=== PATIENT | female | born 1985 | race African-American/Black ===

== ENCOUNTER 2016-10-20 09:10 | Inpatient (IN) | payer OTHER ==
[~2016-10-20] VITALS: Ht 154.9 cm; Wt 72.6 kg
[~2016-10-20 09:10] MED LIST: ALBUTEROL SULF8.5 GM INH; AZITHROMYCIN250 MG ORAL; BENADRYL50 MG ORAL; CIPROFLOXACIN500 M2 ORAL; COLACE100 MG ORAL; HYDROCORTISONE28 G5 TP; LEVAQUIN500 MG ORAL; MAGNESIUM CITR296 M1 PO; MEDROL DOSEPAK4 MG ORAL; METRONIDAZOLE500 MG ORAL; NORCO 5-325 TA1 EACH ORAL; PREDNISONE20 MG ORAL; UNOBMED
[2016-10-20] MEDS ORDERED: NKM (09:29)
[2016-10-20] MEDS ORDERED: HYDROmorphone 1 MG, DiphenhydrAMINE 25 MG in NS 55 ML IV ONE (09:30)
[2016-10-20] MEDS ORDERED: Solu-MEDROL 125mg Inj IVP ONE (09:30)
--- NOTE | 2016-10-20 09:31 | Emergency Room Report ---
History of Present Illness General Chief Complaint: Chest Pain Source: Patient Present Illness HPI Patient presents with complaints of general weakness Left upper chest pain Patient reports that she has Crohn's and she has had increased diarrhea Increased bleeding as well Pain in the upper chest as 12/09 denies any pleurisy with this Patient also reports vomiting Patient reports that she's been off medications for the past one year Initially reports that her insurance was not active later she reports that she has been going through a lot and did not have the chance to see a physician She reports fever yesterday Denies any headache or visual changes Allergies: Coded Allergies: HEPARIN (Verified Allergy, Mild, RASH, 09/01/13) Patient History Past Medical History: see triage record Pertinent Family History: none Last Menstrual Period: september 28, 2016 Now: No Reviewed Nursing Documentation: PMH: Agreed, PSxH: Agreed Nursing Documentation-PMH Past Medical History: No History, Except For Hx Cardiac Problems: No - LUPUS, CHRONS, RA Hx Diabetes: Yes Review of Systems All Other Systems: negative except mentioned in HPI Physical Exam Vital Signs Date Time Temp Pulse Resp B/P Pulse Ox O2 Delivery O2 Flow Rate FiO2 10/20/16 09:16 98.2 96 21 119/67 100 Room Air Sp02 EP Interpretation: reviewed, normal General Appearance: no apparent distress - However appears weak Head: normocephalic, atraumatic Eyes: bilateral eye EOMI, bilateral eye PERRL ENT: hearing grossly normal, TMs + canals normal, uvula midline, dry mucus membranes Neck: full range of motion, supple, no meningismus, no bony tend Respiratory: lungs clear, normal breath sounds, no rhonchi, no respiratory distress, no retraction, no accessory muscle use Cardiovascular #1: normal peripheral pulses, regular rate, rhythm, no edema, no gallop, no JVD, no murmur Gastrointestinal: no mass, no organomegaly, non-distended, no guarding, no hernia, no pulsatile mass, no rebound, tenderness - Patient is tender diffusely however soft abdomen mild hyperactive bowel sounds, , Genitourinary: no CVA tenderness Musculoskeletal: normal inspection Neurologic: oriented x3, responsive, 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 tested, motor strength/ tone normal, sensory intact Psychiatric: mood/affect normal Skin: normal color, no rash, warm/dry, palpation normal Lymphatic: normal inspection, no adenopathy Medical Decision Making Diagnostic Impression: Primary Impression: ACS (acute coronary syndrome) Additional Impression: Crohn disease ER Course Patient is a fairly complex patient with multiple differential to consideration including but not limited to cardiac cardiopulmonary and vascular emergencies Patient's blood work at this time and so far appropriate patient does have multiple risk factors Given the history exam and presentation Patient will be admitted for further inpatient care Labs Test 10/20/16 09:35 10/20/16 09:45 10/20/16 10:10 10/20/16 15:45 Urine Color Pale yellow Urine Appearance Clear Urine pH 7 (4.5-8.0) Urine Specific [place] 1.010 (1.005-1.035) Urine Protein Negative (NEGATIVE) Urine Glucose (UA) Negative (NEGATIVE) Urine Ketones Negative (NEGATIVE) Urine Occult Blood Negative (NEGATIVE) Urine Nitrite Negative (NEGATIVE) Urine Bilirubin Negative (NEGATIVE) Urine Urobilinogen Normal MG/DL (0.0-1.0) Urine Leukocyte Esterase Negative (NEGATIVE) Urine HCG, Qualitative Negative Urine Opiates Screen Negative (NEGATIVE) Urine Barbiturates Screen Negative (NEGATIVE) Phencyclidine (PCP) Screen Negative (NEGATIVE) Urine Amphetamines Screen Positive (NEGATIVE) Urine Benzodiazepines Screen Negative (NEGATIVE) Urine Cocaine Screen Negative (NEGATIVE) Urine Marijuana (THC) Screen Negative (NEGATIVE) Sodium Level 136 mEQ/L (135-145) Potassium Level 4.0 mEQ/L (3.4-4.9) Chloride Level 96 mEQ/L (98-107) Carbon Dioxide Level 26 mEQ/L (20-30) Anion Gap 14 (5-15) Blood Urea Nitrogen 7 mg/dL (7-23) Creatinine 0.7 mg/dL (0.5-0.9) Estimat Glomerular Filtration Rate > 60 mL/min (>60) Glucose Level 109 mg/dL (74-106) Calcium Level 9.5 mg/dL (8.6-10.2) Total Bilirubin 0.5 mg/dL (0.0-1.2) Aspartate Amino Transf (AST/SGOT) 17 U/L (5-40) Alanine Aminotransferase (ALT/SGPT) 10 U/L (3-33) Alkaline Phosphatase 75 U/L (35-104) Total Creatine Kinase 52 U/L (26-140) Creatine Kinase MB < 1.5 ng/mL (< 3.8) Creatine Kinase MB Relative Index Troponin I < 0.30 ng/mL (<=0.30) < 0.30 ng/mL (<=0.30) Pro-B-Type Natriuretic Peptide 17 pg/mL (0-125) Total Protein 7.5 g/dL (6.6-8.7) Albumin 4.5 g/dL (3.5-5.2) Globulin 3.0 g/dL Albumin/Globulin Ratio 1.5 (1.0-2.7) Lipase 18 U/L (< 60) White Blood Count 11.1 K/UL (4.8-10.8) Red Blood Count 5.01 M/UL (4.20-5.40) Hemoglobin 14.8 G/DL (12.0-16.0) Hematocrit 45.8 % (37.0-47.0) Mean Corpuscular Volume 91 FL (80-99) Mean Corpuscular Hemoglobin 29.6 PG (27.0-31.0) Mean Corpuscular Hemoglobin Concent 32.4 G/DL (32.0-36.0) Red Cell Distribution Width 13.8 % (11.6-14.8) Platelet Count 293 K/UL (150-450) Mean Platelet Volume 8.2 FL (6.5-10.1) Neutrophils (%) (Auto) 79.5 % (45.0-75.0) Lymphocytes (%) (Auto) 14.2 % (20.0-45.0) Monocytes (%) (Auto) 4.6 % (1.0-10.0) Eosinophils (%) (Auto) 1.0 % (0.0-3.0) Basophils (%) (Auto) 0.7 % (0.0-2.0) Prothrombin Time 10.1 SEC (9.30-11.50) Prothromb Time International Ratio 1.0 (0.9-1.1) Activated Partial Thromboplast Time 26 SEC (23-33) EKG Diagnostic Results Rate: normal Rhythm: NSR ST Segments: other - Nonspecific ST and T-wave changes Rhythm Strip Diag. Results EP Interpretation: yes Rate: 77 Rhythm: NSR, no PVC's, no ectopy Chest X-Ray Diagnostic Results EP Interpretation: Yes Findings: no consolidation, no effusion, no pneumothorax Number of Views: 1 Last Vital Signs Date Time Temp Pulse Resp B/P Pulse Ox O2 Delivery O2 Flow Rate FiO2 10/20/16 09:23 92 18 Room Air 10/20/16 09:16 98.2 119/67 100 Status: improved Disposition: ADMITTED INPATIENT Condition: Serious JESICA GUTIÉRREZ D.O. Oct 20, 2016 09:31
[2016-10-20] MEDS ORDERED: DiphenhydrAMINE 50mg/ml Inj ONE (09:54)
[2016-10-20] MEDS ORDERED: HYDROmorphone 1mg/ml Carpuject ONE (09:54)
[2016-10-20] MEDS ORDERED: NS 55 ML IV ONE (09:55)
[2016-10-20 10:00] LABS: APPEARANCE,URINE CLEAR; KETONES,URINE NEGATIVE (NEGATIVE); LEUKOCYTE ESTERASE ,URINE NEGATIVE (NEGATIVE); NITRITE,URINE NEGATIVE (NEGATIVE); PH,URINE 7 (4.5-8.0); PROTEIN,URINE NEGATIVE (NEGATIVE); UROBILINOGEN,URINE NORMAL MG/DL (0.0-1.0)
[2016-10-20 10:41] LABS: TROPONIN I < 0.30 ng/mL (<=0.30)
[2016-10-20 10:46] LABS: BASOPHILS % (AUTO) 0.7 % (0.0-2.0); LYMPHOCYTES % (AUTO) 14.2 % (20.0-45.0); MEAN CORPUSCULAR HEMOGLOBIN 29.6 PG (27.0-31.0); MEAN CORPUSCULAR HGB CONC 32.4 G/DL (32.0-36.0); MEAN CORPUSCULAR VOLUME 91 FL (80-99); MEAN PLATELET VOLUME 8.2 FL (6.5-10.1); MONOCYTES % (AUTO) 4.6 % (1.0-10.0); NEUTROPHILS % (AUTO) 79.5 % (45.0-75.0); PLATELET COUNT 293 K/UL (150-450); RED BLOOD COUNT 5.01 M/UL (4.20-5.40); RED CELL DISTRIBUTION WIDTH 13.8 % (11.6-14.8); WHITE BLOOD COUNT 11.1 K/UL (4.8-10.8)
[2016-10-20 10:48] VITALS: BP 111/75
[2016-10-20 10:53] LABS: PROTHROMBIN TIME 10.1 SEC (9.30-11.50)
[2016-10-20 10:58] LABS: ALANINE AMINOTRANSFERASE 10 U/L (3-33); ALBUMIN/GLOBULIN RATIO 1.5 (1.0-2.7); ANION GAP 14 (5-15); ASPARTATE AMINO TRANSFERASE 17 U/L (5-40); CALCIUM 9.5 mg/dL (8.6-10.2); CARBON DIOXIDE 26 mEQ/L (20-30); CHLORIDE 96 mEQ/L (98-107); CREATININE 0.7 mg/dL (0.5-0.9); GLOMERULAR FILTRATION RATE > 60 mL/min (>60); HEMOLYSIS 1; LIPASE 18 U/L (< 60); SODIUM 136 mEQ/L (135-145); TOTAL PROTEIN 7.5 g/dL (6.6-8.7)
--- NOTE | 2016-10-20 11:02 | Diagnostic Imaging Report ---
Indication: Chest pain Technique: One view of the chest Comparison: 07/05/2014 Findings: Lungs and pleural spaces are clear. Heart size is normal. No significant change Impression: No acute process
[2016-10-20 11:08] LABS: CKMB < 1.5 ng/mL (< 3.8)
[2016-10-20 12:56] VITALS: BP 101/66
[2016-10-20] MEDS ORDERED: Miralax 17gm pkt ORAL PRN (13:30)
[2016-10-20] MEDS ORDERED: Diltiazem 25mg/5ml IV PRN (13:30)
[2016-10-20] MEDS ORDERED: Enalaprilat 2.5mg/2ml Inj IV PRN (13:30)
[2016-10-20] MEDS ORDERED: DuoNeb 0.5-3(2.5)mg/3ml neb HHN PRN (13:30)
[2016-10-20] MEDS ORDERED: Ketorolac 30mg Inj IV PRN (13:30)
[2016-10-20] MEDS ORDERED: Nitroglycerin Subl 0.4mg tab (Bottle Of 25) SL PRN (13:45)
[2016-10-20 15:00] VITALS: BP 107/68
[2016-10-20] MEDS: Morphine Sulfate 2mg/ml Inj IVP PRN ×2 (15:40→23:03)
[2016-10-20 16:14] LABS: TROPONIN I < 0.30 ng/mL (<=0.30)
[2016-10-20 16:30] VITALS: BP 110/59
[2016-10-20 18:51] VITALS: BP 101/70
[2016-10-20 20:00] VITALS: BP 114/64
[2016-10-20] MEDS ORDERED: Heparin 5000 units/ml inj SUBQ SCH (21:00)
--- NOTE | 2016-10-20 21:58 | Cardiology Progress Note ---
Assessment/Plan Assessment/Plan The patient is seen and examined, full consult will be dictated. Objective Last 24 Hour Vital Signs Date Time Temp Pulse Resp B/P Pulse Ox O2 Delivery O2 Flow Rate FiO2 10/20/16 18:51 98.4 118 20 101/70 94 Room Air 10/20/16 17:36 105 16 107/67 97 Room Air 10/20/16 16:30 109 17 110/59 99 Room Air 10/20/16 16:10 98.2 10/20/16 15:00 99 14 107/68 99 Room Air 10/20/16 12:56 98.2 102 22 101/66 98 Room Air 10/20/16 11:18 98.3 10/20/16 10:48 81 16 111/75 100 Room Air 10/20/16 09:23 92 18 Room Air 10/20/16 09:16 98.2 96 21 119/67 100 Room Air Laboratory Tests Test 10/20/16 09:35 10/20/16 09:45 10/20/16 10:10 10/20/16 15:45 Urine Color Pale yellow Urine Appearance Clear Urine pH 7 (4.5-8.0) Urine Specific [place] 1.010 (1.005-1.035) Urine Protein Negative (NEGATIVE) Urine Glucose (UA) Negative (NEGATIVE) Urine Ketones Negative (NEGATIVE) Urine Occult Blood Negative (NEGATIVE) Urine Nitrite Negative (NEGATIVE) Urine Bilirubin Negative (NEGATIVE) Urine Urobilinogen Normal MG/DL (0.0-1.0) Urine Leukocyte Esterase Negative (NEGATIVE) Urine HCG, Qualitative Negative Urine Opiates Screen Negative (NEGATIVE) Urine Barbiturates Screen Negative (NEGATIVE) Phencyclidine (PCP) Screen Negative (NEGATIVE) Urine Amphetamines Screen Positive (NEGATIVE) H Urine Benzodiazepines Screen Negative (NEGATIVE) Urine Cocaine Screen Negative (NEGATIVE) Urine Marijuana (THC) Screen Negative (NEGATIVE) Sodium Level 136 mEQ/L (135-145) Potassium Level 4.0 mEQ/L (3.4-4.9) Chloride Level 96 mEQ/L (98-107) L Carbon Dioxide Level 26 mEQ/L (20-30) Anion Gap 14 (5-15) Blood Urea Nitrogen 7 mg/dL (7-23) Creatinine 0.7 mg/dL (0.5-0.9) Estimat Glomerular Filtration Rate > 60 mL/min (>60) Glucose Level 109 mg/dL (74-106) H Calcium Level 9.5 mg/dL (8.6-10.2) Total Bilirubin 0.5 mg/dL (0.0-1.2) Aspartate Amino Transf (AST/SGOT) 17 U/L (5-40) Alanine Aminotransferase (ALT/SGPT) 10 U/L (3-33) Alkaline Phosphatase 75 U/L (35-104) Total Creatine Kinase 52 U/L (26-140) Creatine Kinase MB < 1.5 ng/mL (< 3.8) Creatine Kinase MB Relative Index Troponin I < 0.30 ng/mL (<=0.30) < 0.30 ng/mL (<=0.30) Pro-B-Type Natriuretic Peptide 17 pg/mL (0-125) Total Protein 7.5 g/dL (6.6-8.7) Albumin 4.5 g/dL (3.5-5.2) Globulin 3.0 g/dL Albumin/Globulin Ratio 1.5 (1.0-2.7) Lipase 18 U/L (< 60) White Blood Count 11.1 K/UL (4.8-10.8) H Red Blood Count 5.01 M/UL (4.20-5.40) Hemoglobin 14.8 G/DL (12.0-16.0) Hematocrit 45.8 % (37.0-47.0) Mean Corpuscular Volume 91 FL (80-99) Mean Corpuscular Hemoglobin 29.6 PG (27.0-31.0) Mean Corpuscular Hemoglobin Concent 32.4 G/DL (32.0-36.0) Red Cell Distribution Width 13.8 % (11.6-14.8) Platelet Count 293 K/UL (150-450) Mean Platelet Volume 8.2 FL (6.5-10.1) Neutrophils (%) (Auto) 79.5 % (45.0-75.0) H Lymphocytes (%) (Auto) 14.2 % (20.0-45.0) L Monocytes (%) (Auto) 4.6 % (1.0-10.0) Eosinophils (%) (Auto) 1.0 % (0.0-3.0) Basophils (%) (Auto) 0.7 % (0.0-2.0) Prothrombin Time 10.1 SEC (9.30-11.50) Prothromb Time International Ratio 1.0 (0.9-1.1) Activated Partial Thromboplast Time 26 SEC (23-33) LOUISE BARRIOS Oct 20, 2016 21:58
[2016-10-21] VITALS: BP 114/64
[2016-10-21 04:00] VITALS: BP 114/73
[2016-10-21] MEDS: Aspirin Baby 81mg ORAL SCH (07:39)
[2016-10-21] MEDS: Morphine Sulfate 2mg/ml Inj IVP PRN ×2 (07:40→18:19)
[2016-10-21 08:18] VITALS: BP 100/53
[2016-10-21] MEDS ORDERED: Sodium Bicarbonate 8.4% 50ml Inj IV SCH (10:00)
[2016-10-21] MEDS ORDERED: Lidocaine 1% Plain 30 ml INJ SCH (10:00)
[2016-10-21] MEDS: DiphenhydrAMINE 50mg/ml Inj IVP PRN ×2 (10:46→18:09)
--- NOTE | 2016-10-21 10:56 | Consultation ---
History of Present Illness General Date patient seen: Oct 21, 2016 Chief Complaint: Chest Pain Referring physician: Dr. Pino Reason for Consultation: cough Present Illness HPI 31 year old female with hx of Lupus, Crohn disease, currently not getting any treatment, presented to [facility] ER with multiple complains including chest pain , diarrhea, cough. pt is currently crying and answer yes to all of my questions about her complains. Allergies: Coded Allergies: HEPARIN (Verified Allergy, Mild, RASH, 09/01/13) Medication History Scheduled Albuterol Sulfate* (Albuterol Sulfate Mdi*), 2 PUFF INH Q4H Azithromycin* (Zithromax*), 250 MG ORAL DAILY Ciprofloxacin Hcl* (Ciprofloxacin Hcl*), 500 MG ORAL Q12H Docusate Sodium* (Colace*), 100 MG ORAL THREE TIMES A DAY Hydrocortisone/Aloe Vera (Hydrocortisone 1% Ointment), 1 GM TP TID Magnesium Citrate (Magnesium Citrate), 150 ML PO BID Methylprednisolone (Methylprednisolone*), 4 MG ORAL .as directed Metronidazole* (Flagyl*), 500 MG ORAL THREE TIMES A DAY No Known Medications* (NKM - No Known Medications*), 0 ., (Reported) Scheduled PRN Diphenhydramine HCl (Diphenhydramine HCl), 50 MG ORAL Q6H PRN for Itching Hydrocodone Bit/Acetaminophen 5-325* ([place] 5-325*), 1 TAB ORAL Q6H PRN for For Pain Miscellaneous Medications Unable to Obtain Medications (Unable To Obtain Meds), (Reported) Patient History Healthcare decision maker NONE Resuscitation status Full Code Advanced Directive on File Past Medical/Surgical History Past Medical/Surgical History: (1) Lupus erythematosus (2) Crohn disease (3) Ulcerative colitis Review of Systems All Other Systems: negative except mentioned in HPI Physical Exam General Appearance: WD/WN Lines, tubes and drains: peripheral HEENT: normocephalic, anicteric Neck: non-tender, normal alignment Respiratory/Chest: chest wall non-tender, lungs clear Cardiovascular/Chest: normal peripheral pulses Last 24 Hour Vital Signs Date Time Temp Pulse Resp B/P Pulse Ox O2 Delivery O2 Flow Rate FiO2 10/21/16 08:18 97.7 109 18 100/53 95 Room Air 10/21/16 05:39 90 114/64 10/21/16 05:39 114/64 10/21/16 04:00 90 10/21/16 04:00 97.5 97 20 114/73 10/21/16 00:00 96 10/21/16 00:00 98.4 120 18 114/64 95 Room Air 10/20/16 23:33 98.4 10/20/16 23:03 114/64 10/20/16 20:00 98.4 120 18 114/64 95 Room Air 10/20/16 20:00 115 10/20/16 18:51 98.4 118 20 101/70 94 Room Air 10/20/16 17:36 105 16 107/67 97 Room Air 10/20/16 16:30 109 17 110/59 99 Room Air 10/20/16 15:00 99 14 107/68 99 Room Air 10/20/16 12:56 98.2 102 22 101/66 98 Room Air 10/20/16 11:18 98.3 Intake and Output 10/20/16 10/21/16 19:00 07:00 Intake Total 556.5 ml Balance 556.5 ml IV Total 556.5 ml # Voids 1 1 Laboratory Tests Test 10/20/16 15:45 Troponin I < 0.30 ng/mL (<=0.30) Height (Feet): 5 Height (Inches): 1.00 Weight (Pounds): 160 Medications Current Medications Medications (Trade) Dose Ordered Sig/Mango Route PRN Reason Start Time Stop Time Status Last Admin Dose Admin Acetaminophen (Tylenol) 650 mg Q4H PRN ORAL T>100.5 10/20/16 13:30 11/19/16 13:29 Albuterol/ Ipratropium (DuoNeb 0.5-3(2.5)mg/3ml) 3 ml Q4H PRN HHN Shortness of Breath 10/20/16 13:30 10/25/16 13:29 Aspirin (ASA) 162 mg DAILY ORAL 10/21/16 09:00 11/20/16 08:59 10/21/16 07:39 Diltiazem HCl (Cardizem) 10 mg EVERY HOUR PRN IV heart rate more than 120 10/20/16 13:30 11/19/16 13:29 Diltiazem HCl (Cardizem) 30 mg EVERY 8 HOURS ORAL 10/21/16 06:00 11/20/16 05:59 10/21/16 05:39 Diphenhydramine HCl (Benadryl) 25 mg Q6H PRN ORAL Itching 10/20/16 19:00 11/19/16 18:59 10/20/16 19:13 Enalaprilat (Vasotec) 2.5 mg Q6H PRN IV sbp more than 160 10/20/16 13:30 11/19/16 13:29 Isosorbide Dinitrate (Isordil) 10 mg Q6HR ORAL 10/21/16 00:00 11/20/16 00:00 10/20/16 23:03 Lidocaine HCl (Xylocaine 1% 30ml) 30 ml ONCE INJ 10/21/16 10:00 10/23/16 14:00 Morphine Sulfate (Morphine Sulfate) 2 mg Q4H PRN IVP Severe Pain (Pain Scale 7-10) 10/20/16 13:30 10/27/16 13:29 10/21/16 07:40 Nitroglycerin (Ntg) 0.4 mg Q5MIN X 3 DOSES PRN SL Prn Chest Pain 10/20/16 13:45 11/19/16 13:44 Ondansetron HCl (Zofran) 4 mg Q6H PRN IVP Nausea & Vomiting 10/20/16 13:30 11/19/16 13:29 Pantoprazole (Protonix) 40 mg DAILY ORAL 10/21/16 09:00 11/20/16 08:59 10/21/16 07:39 Polyethylene Glycol (Miralax) 17 gm DAILYPRN PRN ORAL Constipation 10/20/16 13:30 11/19/16 13:29 Sodium Bicarbonate (Sodium Bicarbonate) 50 ml ONCE IV 10/21/16 10:00 10/23/16 14:00 Temazepam (Restoril) 15 mg HSPRN PRN ORAL Insomnia 10/20/16 21:00 10/27/16 20:59 Assessment/Plan Problem List: (1) ACS (acute coronary syndrome) ICD Codes: I24.9 - Acute ischemic heart disease, unspecified SNOMED: 241826717 (2) Crohn disease ICD Codes: K50.90 - Crohn's disease, unspecified, without complications SNOMED: 44328983 (3) Ulcerative colitis (4) Lupus erythematosus ICD Codes: L93.0 - Discoid lupus erythematosus SNOMED: 405324321 Assessment/Plan serial ekg, troponin echo cardio BERNABE SOUZA Oct 21, 2016 10:56
[2016-10-21 11:05] LABS: BASOPHILS % (AUTO) 0.5 % (0.0-2.0); EOSINOPHILS % (AUTO) 0.4 % (0.0-3.0); LYMPHOCYTES % (AUTO) 15.3 % (20.0-45.0); MEAN CORPUSCULAR HEMOGLOBIN 29.6 PG (27.0-31.0); MEAN CORPUSCULAR HGB CONC 32.8 G/DL (32.0-36.0); MEAN CORPUSCULAR VOLUME 90 FL (80-99); MEAN PLATELET VOLUME 7.4 FL (6.5-10.1); NEUTROPHILS % (AUTO) 77.9 % (45.0-75.0); PLATELET COUNT 292 K/UL (150-450); RED BLOOD COUNT 4.62 M/UL (4.20-5.40); RED CELL DISTRIBUTION WIDTH 13.4 % (11.6-14.8); WHITE BLOOD COUNT 13.3 K/UL (4.8-10.8)
[2016-10-21 11:17] LABS: PROTHROMBIN TIME 10.4 SEC (9.30-11.50)
[2016-10-21 11:36] LABS: CHOLESTEROL 200 mg/dL (< 200); CRP QUANT < 0.3 mg/dL (< 0.5); HEMOLYSIS 4; LDL CHOLESTEROL (CALC.) 146 mg/dL (60-99)
[2016-10-21 11:45] LABS: THYROID STIMULATING HORMONE 0.768 uIU/mL (0.300-4.500)
[2016-10-21 11:49] VITALS: BP 94/59
[2016-10-21 13:36] LABS: TROPONIN I < 0.30 ng/mL (<=0.30)
[2016-10-21 16:12] VITALS: BP 110/60
--- NOTE | 2016-10-21 18:18 | History and Physical Report ---
DATE OF ADMISSION: 10/21/2016 TIME SEEN: 10 a.m. CONSULTANTS: 1. Tristen Roa M.D. 2. Duane Marcum M.D. CHIEF COMPLAINT: Chest pain and shortness of breath. HISTORY OF PRESENT ILLNESS: This is a 31-year-old female with history of lupus and Crohn's disease presented with increased chest pain and shortness of breath, diagnosed with above, and admitted to telemetry for further care. Currently, calm, slightly anxious in bed, slight short of breath, and no complaints. PAST MEDICAL HISTORY: Includes lupus, Crohn's, and rheumatoid arthritis. PAST SURGICAL HISTORY: Tonsillectomy. MEDICATIONS: Includes Xylocaine, aspirin, Protonix, Cardizem, Isordil, Restoril, Benadryl, and nitroglycerin. ALLERGIES: Heparin. SOCIAL HISTORY: No smoking, no alcohol, and no intravenous drug abuse. FAMILY HISTORY: Noncontributory. REVIEW OF SYSTEMS: Slight chest pain and slight short of breath. No nausea, vomiting, or diarrhea. PHYSICAL EXAMINATION: GENERAL: Calm, anxious in bed, oriented x3, and in no acute distress. VITAL SIGNS: Temperature is 97 degrees, pulse 109, respirations 18, and blood pressure 100/53. CARDIOVASCULAR: No murmur. LUNGS: Distant and clear. ABDOMEN: Bowel sounds are positive. Nontender and nondistended. EXTREMITIES: No clubbing, cyanosis, or edema. NEUROLOGIC: The patient moves all extremities, slightly weak. LABORATORY DATA: Lab exam show white count 11.1, otherwise CBC is normal. BMP show chloride 96 and glucose 109, otherwise BMP is normal. Troponin is less than 0.3 x2. INR is 1.0. Urine tox is positive for amphetamine use. Urinalysis negative. ASSESSMENT: 1. Chest pain. 2. Shortness of breath. 3. Lupus. 4. Crohn's. 5. Rheumatoid arthritis. 6. Positive urine toxicology. PLAN: 1. Continue premedications. 2. O2 and pulmonary treatment. 3. Pain control. 4. Cardiology followup. 5. Troponin q.8 h. x3. 6. EKG in the morning. 7. Resume home medications. 8. OT, PT, and dietary evaluation. 9. CBC and BMP in the morning. 10. We will continue to follow this patient. Juan Carlos Pino D.O. DR: LETY JOB#: [id number] CC:
[2016-10-21 20:00] VITALS: BP 95/57
[2016-10-22] VITALS (7 sets, daily range): BP systolic 96–108; BP diastolic 51–74
[2016-10-22] MEDS: DiphenhydrAMINE 50mg/ml Inj IVP PRN ×4 (00:18→19:39)
[2016-10-22] MEDS: Morphine Sulfate 2mg/ml Inj IVP PRN ×3 (00:19→16:05)
--- NOTE | 2016-10-22 07:53 | General Progress Note ---
Assessment/Plan Problem List: (1) Lupus erythematosus ICD Codes: L93.0 - Discoid lupus erythematosus SNOMED: 655777257 (2) Crohn disease ICD Codes: K50.90 - Crohn's disease, unspecified, without complications SNOMED: 37818255 (3) ACS (acute coronary syndrome) ICD Codes: I24.9 - Acute ischemic heart disease, unspecified SNOMED: 367572630 (4) Acute chest pain ICD Codes: R07.9 - Chest pain, unspecified SNOMED: 405378667 Status: stable, progressing, tolerating diet Assessment/Plan ot pt diet abx cbc bmp am id eval Subjective Constitutional: Reports: weakness Allergies: Coded Allergies: HEPARIN (Verified Allergy, Mild, RASH, 09/01/13) All Systems: reviewed and negative except above Subjective sleepy in bed Objective Last 24 Hour Vital Signs Date Time Temp Pulse Resp B/P Pulse Ox O2 Delivery O2 Flow Rate FiO2 10/22/16 07:43 97.6 10/22/16 05:36 105 106/65 10/22/16 04:00 105 10/22/16 04:00 97.6 90 20 106/65 96 Room Air 10/22/16 00:08 105/69 10/22/16 00:00 97.6 94 20 97/66 98 Room Air 10/22/16 00:00 85 10/21/16 22:00 96 95/57 10/21/16 20:00 104 10/21/16 20:00 97.8 96 20 95/57 96 Room Air 10/21/16 18:10 110/60 10/21/16 16:12 97.3 83 18 110/60 95 Room Air 10/21/16 16:00 86 10/21/16 14:00 84 94/59 10/21/16 12:00 94/59 10/21/16 12:00 84 10/21/16 11:49 97.7 104 18 94/59 96 Room Air 10/21/16 08:18 97.7 109 18 100/53 95 Room Air 10/21/16 08:00 102 Intake and Output 10/21/16 10/22/16 19:00 07:00 Intake Total 360 ml 100 ml Balance 360 ml 100 ml Intake Oral 360 ml 100 ml # Voids 2 Laboratory Tests 10/21/16 10:15: White Blood Count 13.3H, Red Blood Count 4.62, Hemoglobin 13.7, Hematocrit 41.7 , Mean Corpuscular Volume 90, Mean Corpuscular Hemoglobin 29.6, Mean Corpuscular Hemoglobin Concent 32.8, Red Cell Distribution Width 13.4, Platelet Count 292, Mean Platelet Volume 7.4, Neutrophils (%) (Auto) 77.9H, Lymphocytes ( %) (Auto) 15.3L, Monocytes (%) (Auto) 6.0, Eosinophils (%) (Auto) 0.4, Basophils (%) (Auto) 0.5, Erythrocyte Sedimentation Rate 41H, Prothrombin Time 10.4, Prothromb Time International Ratio 1.0, Activated Partial Thromboplast Time 26, Troponin I < 0.30, C-Reactive Protein, Quantitative < 0.3, Triglycerides Level 70, Cholesterol Level 200, LDL Cholesterol 146H, HDL Cholesterol 40, Cholesterol/HDL Ratio 5.0H, Thyroid Stimulating Hormone (TSH) 0.768, Rheumatoid Factor Screen [Pending], Anti-Nuclear Antibody Screen [Pending ], Total Complement (CH50) [Pending] Height (Feet): 5 Height (Inches): 1.00 Weight (Pounds): 160 General Appearance: lethargic EENT: normal ENT inspection Neck: normal alignment Cardiovascular: normal peripheral pulses, normal rate, regular rhythm Respiratory/Chest: chest wall non-tender, lungs clear, normal breath sounds Abdomen: normal bowel sounds, non tender, soft Extremities: normal inspection Edema: no edema noted Arm (L), no edema noted Arm (R), no edema noted Leg (L), no edema noted Leg (R), no edema noted Pedal (L), no edema noted Pedal (R), no edema noted Generalized Neurologic: motor weakness Skin: normal pigmentation, warm/dry JULI CALVILLO Oct 22, 2016 07:53
[2016-10-22 08:08] LABS: RHEUMATOID FACTOR SCREEN <10.0 IU/mL (0.0-13.9)
[2016-10-22] MEDS: Aspirin Baby 81mg ORAL SCH (09:53)
[2016-10-22] MEDS ORDERED: Nitroglycerin Subl 0.4mg tab (Bottle Of 25) SL PRN (17:00)
[2016-10-22] MEDS ORDERED: Diltiazem 25mg/5ml IV PRN (17:00)
--- NOTE | 2016-10-22 17:34 | Infectious Diseases Prog Note ---
Assessment/Plan Problems: (1) Leukocytosis Assessment & Plan: Rule-out sepsis. UA and CXR OK. Check C. diff and stool cx. Could also be reactive. (2) Polysubstance abuse Assessment & Plan: Check HIV. (3) Acute chest pain (4) Diarrhea Assessment & Plan: Check C. diff and stool culture. Subjective Allergies: Coded Allergies: HEPARIN (Verified Allergy, Mild, RASH, 09/01/13) Objective Vital Signs Last 24 Hour Vital Signs Date Time Temp Pulse Resp B/P Pulse Ox O2 Delivery O2 Flow Rate FiO2 10/22/16 15:24 97.3 93 18 106/51 95 Room Air 10/22/16 13:55 96 96/54 10/22/16 12:52 97.7 96 18 96/54 96 Room Air 10/22/16 12:00 91 10/22/16 11:26 96/54 10/22/16 08:36 97.5 87 18 108/66 97 Room Air 10/22/16 08:00 85 10/22/16 07:43 97.6 10/22/16 05:36 105 106/65 10/22/16 04:00 105 10/22/16 04:00 97.6 90 20 106/65 96 Room Air 10/22/16 00:08 105/69 10/22/16 00:00 97.6 94 20 97/66 98 Room Air 10/22/16 00:00 85 10/21/16 22:00 96 95/57 10/21/16 20:00 104 10/21/16 20:00 97.8 96 20 95/57 96 Room Air 10/21/16 18:10 110/60 Height (Feet): 5 Height (Inches): 1.00 Weight (Pounds): 160 Current Medications Medications (Trade) Dose Ordered Sig/Mango Route PRN Reason Start Time Stop Time Status Last Admin Dose Admin Acetaminophen (Tylenol) 650 mg Q4H PRN ORAL T>100.5 10/22/16 18:00 11/21/16 17:59 Albuterol/ Ipratropium (DuoNeb 0.5-3(2.5)mg/3ml) 3 ml Q4H PRN HHN Shortness of Breath 10/22/16 18:00 10/27/16 17:59 Aspirin (ASA) 162 mg DAILY ORAL 10/23/16 09:00 11/22/16 08:59 Diltiazem HCl (Cardizem) 30 mg EVERY 8 HOURS ORAL 10/22/16 22:00 11/21/16 21:59 Diphenhydramine HCl (Benadryl) 25 mg Q6H PRN IVP Itching 10/22/16 18:00 11/21/16 17:59 Enalaprilat (Vasotec) 2.5 mg Q6H PRN IV sbp more than 160 10/22/16 18:00 11/21/16 17:59 Isosorbide Dinitrate (Isordil) 10 mg Q6HR ORAL 10/22/16 18:00 11/21/16 17:59 Lidocaine HCl (Xylocaine 1% 30ml) 30 ml ONCE PRN INJ PICC LINE PLACEMENT 10/22/16 18:00 10/23/16 20:00 Morphine Sulfate (Morphine Sulfate) 2 mg Q4H PRN IVP Severe Pain (Pain Scale 7-10) 10/22/16 18:00 10/29/16 17:59 Nitroglycerin (Ntg) 0.4 mg Q5MIN X 3 DOSES PRN SL Prn Chest Pain 10/22/16 17:00 11/21/16 16:59 Ondansetron HCl (Zofran) 4 mg Q6H PRN IVP Nausea & Vomiting 10/22/16 18:00 11/21/16 17:59 Pantoprazole (Protonix) 40 mg DAILY ORAL 10/23/16 09:00 11/22/16 08:59 Polyethylene Glycol (Miralax) 17 gm DAILYPRN PRN ORAL Constipation 10/22/16 18:00 11/21/16 17:59 Sodium Bicarbonate (Sodium Bicarbonate) 50 ml ONCE PRN IV PICC LINE PLACEMENT 10/22/16 18:00 10/23/16 20:00 Temazepam (Restoril) 15 mg HSPRN PRN ORAL Insomnia 10/22/16 21:00 10/29/16 20:59 KITTY SOW Oct 22, 2016 17:34
[2016-10-22] MEDS ORDERED: Lidocaine 1% Plain 30 ml INJ PRN (18:00)
[2016-10-22] MEDS ORDERED: Sodium Bicarbonate 8.4% 50ml Inj IV PRN (18:00)
[2016-10-22] MEDS ORDERED: Enalaprilat 2.5mg/2ml Inj IV PRN (18:00)
[2016-10-22] MEDS ORDERED: Miralax 17gm pkt ORAL PRN (18:00)
[2016-10-22] MEDS ORDERED: DuoNeb 0.5-3(2.5)mg/3ml neb HHN PRN (18:00)
--- NOTE | 2016-10-22 18:06 | Cardiology Report ---
APPROVED REPORT EXAM: Two-dimensional and M-mode echocardiogram with Doppler and color Doppler. INDICATION Left Ventricular Function M-Mode DIMENSIONS IVSd1.1 (0.7-1.1cm)Left Atrium (MM)3.2 (1.6-4.0cm) LVDd4.7 (3.5-5.6cm)Aortic Root2.5 (2.0-3.7cm) PWd0.7 (0.7-1.1cm)Aortic Cusp Exc.1.9 (1.5-2.0cm) LVDs3.4 (2.5-4.0cm) PWs1.2 cm Technically difficult study due to poor acoustic windows. Study quality precludes accurate assessment of regional wall motion. Normal left ventricular chamber size, systolic function and wall motion to extent visualized. Left ventricular ejection fraction estimated to be grossly normal. No evidence of ventricular hypertrophy. Anterior Echo-free space, may be due to pericardial fat or effusion. All other cardiac chamber sizes are within normal limits. Mild focal aortic valve sclerosis with adequate cusp excursion. Mildly thickened mitral valve leaflets with normal excursion. Mild mitral annulus and aortic root calcification. Pulmonic valve not well visualized. Normal tricuspid valve structure. IVC at normal size with minimal physiologic collapse. A color flow and spectral Doppler study was performed and revealed: No aortic regurgitation. Trace mitral regurgitation. Mitral diastolic velocities suggest reduced left ventricular relaxation (Grade I). Trace tricuspid regurgitation. Tricuspid systolic velocities suggests peak right ventricular systolic pressure of 14 mmHg. No pulmonic regurgitation present.
--- NOTE | 2016-10-22 23:06 | Pulmonology Progress Note ---
Assessment/Plan Problems: (1) ACS (acute coronary syndrome) (2) Crohn disease (3) Ulcerative colitis (4) Lupus erythematosus Assessment/Plan symptomatic treatment Rheuma consult pending cardio appreciated f/u WBC f/u DAMIEN, CH50 Subjective ROS Limited/Unobtainable: No Interval Events: no new complains Constitutional: Reports: no symptoms HEENT: Repors: no symptoms Respiratory: Reports: no symptoms Allergies: Coded Allergies: HEPARIN (Verified Allergy, Mild, RASH, 09/01/13) Objective Last 24 Hour Vital Signs Date Time Temp Pulse Resp B/P Pulse Ox O2 Delivery O2 Flow Rate FiO2 10/22/16 20:00 97.5 105 18 100/74 96 Room Air 10/22/16 18:00 110/49 10/22/16 16:35 97.3 10/22/16 15:24 97.3 93 18 106/51 95 Room Air 10/22/16 13:55 96 96/54 10/22/16 12:52 97.7 96 18 96/54 96 Room Air 10/22/16 12:00 91 10/22/16 11:26 96/54 10/22/16 08:36 97.5 87 18 108/66 97 Room Air 10/22/16 08:00 85 10/22/16 05:36 105 106/65 10/22/16 04:00 105 10/22/16 04:00 97.6 90 20 106/65 96 Room Air 10/22/16 00:08 105/69 10/22/16 00:00 97.6 94 20 97/66 98 Room Air 10/22/16 00:00 85 Intake and Output 10/21/16 10/22/16 19:00 07:00 Intake Total 360 ml 100 ml Balance 360 ml 100 ml Intake Oral 360 ml 100 ml # Voids 2 Objective General Appearance: WD/WN HEENT: normocephalic Respiratory/Chest: chest wall non-tender, lungs clear, normal breath sounds Cardiovascular: normal peripheral pulses, normal rate, regular rhythm Abdomen: normal bowel sounds, soft, non tender, no organomegaly, non distended Extremities: no cyanosis, no clubbing Skin: no rash, no lesions 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 Current Medications Medications (Trade) Dose Ordered Sig/Mango Route PRN Reason Start Time Stop Time Status Last Admin Dose Admin Acetaminophen (Tylenol) 650 mg Q4H PRN ORAL T>100.5 10/22/16 18:00 11/21/16 17:59 Albuterol/ Ipratropium (DuoNeb 0.5-3(2.5)mg/3ml) 3 ml Q4H PRN HHN Shortness of Breath 10/22/16 18:00 10/27/16 17:59 Aspirin (ASA) 162 mg DAILY ORAL 10/23/16 09:00 11/22/16 08:59 Diltiazem HCl (Cardizem) 30 mg EVERY 8 HOURS ORAL 10/22/16 22:00 11/21/16 21:59 Diphenhydramine HCl (Benadryl) 25 mg Q6H PRN IVP Itching 10/22/16 18:00 11/21/16 17:59 10/22/16 19:39 Enalaprilat (Vasotec) 2.5 mg Q6H PRN IV sbp more than 160 10/22/16 18:00 11/21/16 17:59 Isosorbide Dinitrate (Isordil) 10 mg Q6HR ORAL 10/22/16 18:00 11/21/16 17:59 10/22/16 18:00 Lidocaine HCl (Xylocaine 1% 30ml) 30 ml ONCE PRN INJ PICC LINE PLACEMENT 10/22/16 18:00 10/23/16 20:00 Morphine Sulfate (Morphine Sulfate) 2 mg Q4H PRN IVP Severe Pain (Pain Scale 7-10) 10/22/16 18:00 10/29/16 17:59 Nitroglycerin (Ntg) 0.4 mg Q5MIN X 3 DOSES PRN SL Prn Chest Pain 10/22/16 17:00 11/21/16 16:59 Ondansetron HCl (Zofran) 4 mg Q6H PRN IVP Nausea & Vomiting 10/22/16 18:00 11/21/16 17:59 Pantoprazole (Protonix) 40 mg DAILY ORAL 10/23/16 09:00 11/22/16 08:59 Polyethylene Glycol (Miralax) 17 gm DAILYPRN PRN ORAL Constipation 10/22/16 18:00 11/21/16 17:59 Sodium Bicarbonate (Sodium Bicarbonate) 50 ml ONCE PRN IV PICC LINE PLACEMENT 10/22/16 18:00 10/23/16 20:00 Temazepam (Restoril) 15 mg HSPRN PRN ORAL Insomnia 10/22/16 21:00 10/29/16 20:59 BERNABE SOUZA Oct 22, 2016 23:06
[2016-10-23 04:00] VITALS: BP 118/71
[2016-10-23] MEDS: DiphenhydrAMINE 50mg/ml Inj IVP PRN ×3 (06:43→18:47)
[2016-10-23 08:00] VITALS: BP 107/54
[2016-10-23] MEDS: Aspirin Baby 81mg ORAL SCH (08:10)
[2016-10-23] MEDS: Morphine Sulfate 2mg/ml Inj IVP PRN ×3 (08:13→20:58)
[2016-10-23 09:59] LABS: BASOPHILS % (AUTO) 0.7 % (0.0-2.0); EOSINOPHILS % (AUTO) 0.9 % (0.0-3.0); LYMPHOCYTES % (AUTO) 14.3 % (20.0-45.0); MEAN CORPUSCULAR HEMOGLOBIN 29.7 PG (27.0-31.0); MEAN CORPUSCULAR HGB CONC 32.9 G/DL (32.0-36.0); MEAN CORPUSCULAR VOLUME 90 FL (80-99); MEAN PLATELET VOLUME 7.9 FL (6.5-10.1); MONOCYTES % (AUTO) 4.8 % (1.0-10.0); NEUTROPHILS % (AUTO) 79.3 % (45.0-75.0); PLATELET COUNT 278 K/UL (150-450); RED BLOOD COUNT 4.54 M/UL (4.20-5.40); RED CELL DISTRIBUTION WIDTH 13.5 % (11.6-14.8); WHITE BLOOD COUNT 10.8 K/UL (4.8-10.8)
--- NOTE | 2016-10-23 10:12 | Infectious Diseases Prog Note ---
Assessment/Plan Problems: (1) Leukocytosis Assessment & Plan: Rule-out sepsis. UA and CXR OK. Check C. diff and stool cx. Could also be reactive. (2) Polysubstance abuse Assessment & Plan: Check HIV. (3) Acute chest pain (4) Diarrhea Assessment & Plan: Check C. diff and stool culture. Subjective Allergies: Coded Allergies: HEPARIN (Verified Allergy, Mild, RASH, 09/01/13) Objective Vital Signs Last 24 Hour Vital Signs Date Time Temp Pulse Resp B/P Pulse Ox O2 Delivery O2 Flow Rate FiO2 10/23/16 08:00 98.7 94 18 107/54 99 Room Air 10/23/16 05:28 118/71 10/23/16 05:27 89 118/71 10/23/16 04:00 98.2 89 18 118/71 97 Room Air 10/22/16 23:39 106/67 10/22/16 23:29 106 107/67 10/22/16 22:00 105 106/67 10/22/16 20:00 97.5 105 18 100/74 96 Room Air 10/22/16 18:00 110/49 10/22/16 16:35 97.3 10/22/16 15:24 97.3 93 18 106/51 95 Room Air 10/22/16 13:55 96 96/54 10/22/16 12:52 97.7 96 18 96/54 96 Room Air 10/22/16 12:00 91 10/22/16 11:26 96/54 Height (Feet): 5 Height (Inches): 1.00 Weight (Pounds): 160 Laboratory Tests Test 10/23/16 09:15 White Blood Count 10.8 K/UL (4.8-10.8) Red Blood Count 4.54 M/UL (4.20-5.40) Hemoglobin 13.5 G/DL (12.0-16.0) Hematocrit 41.0 % (37.0-47.0) Mean Corpuscular Volume 90 FL (80-99) Mean Corpuscular Hemoglobin 29.7 PG (27.0-31.0) Mean Corpuscular Hemoglobin Concent 32.9 G/DL (32.0-36.0) Red Cell Distribution Width 13.5 % (11.6-14.8) Platelet Count 278 K/UL (150-450) Mean Platelet Volume 7.9 FL (6.5-10.1) Neutrophils (%) (Auto) 79.3 % (45.0-75.0) H Lymphocytes (%) (Auto) 14.3 % (20.0-45.0) L Monocytes (%) (Auto) 4.8 % (1.0-10.0) Eosinophils (%) (Auto) 0.9 % (0.0-3.0) Basophils (%) (Auto) 0.7 % (0.0-2.0) Sodium Level Pending Potassium Level Pending Chloride Level Pending Carbon Dioxide Level Pending Blood Urea Nitrogen Pending Creatinine Pending Estimat Glomerular Filtration Rate Pending Glucose Level Pending Calcium Level Pending Troponin I Pending HIV (1&2) Antibody Rapid Pending Current Medications Medications (Trade) Dose Ordered Sig/Mango Route PRN Reason Start Time Stop Time Status Last Admin Dose Admin Acetaminophen (Tylenol) 650 mg Q4H PRN ORAL T>100.5 10/22/16 18:00 11/21/16 17:59 Albuterol/ Ipratropium (DuoNeb 0.5-3(2.5)mg/3ml) 3 ml Q4H PRN HHN Shortness of Breath 10/22/16 18:00 10/27/16 17:59 Aspirin (ASA) 162 mg DAILY ORAL 10/23/16 09:00 11/22/16 08:59 10/23/16 08:10 Diltiazem HCl (Cardizem) 30 mg EVERY 8 HOURS ORAL 10/22/16 22:00 11/21/16 21:59 10/23/16 05:27 Diphenhydramine HCl (Benadryl) 25 mg Q6H PRN IVP Itching 10/22/16 18:00 11/21/16 17:59 10/23/16 06:43 Enalaprilat (Vasotec) 2.5 mg Q6H PRN IV sbp more than 160 10/22/16 18:00 11/21/16 17:59 Isosorbide Dinitrate (Isordil) 10 mg Q6HR ORAL 10/22/16 18:00 11/21/16 17:59 10/23/16 05:28 Lidocaine HCl (Xylocaine 1% 30ml) 30 ml ONCE PRN INJ PICC LINE PLACEMENT 10/22/16 18:00 10/23/16 20:00 Morphine Sulfate (Morphine Sulfate) 2 mg Q4H PRN IVP Severe Pain (Pain Scale 7-10) 10/22/16 18:00 10/29/16 17:59 10/23/16 08:13 Nitroglycerin (Ntg) 0.4 mg Q5MIN X 3 DOSES PRN SL Prn Chest Pain 10/22/16 17:00 11/21/16 16:59 Ondansetron HCl (Zofran) 4 mg Q6H PRN IVP Nausea & Vomiting 10/22/16 18:00 11/21/16 17:59 10/23/16 08:10 Pantoprazole (Protonix) 40 mg DAILY ORAL 10/23/16 09:00 11/22/16 08:59 10/23/16 08:10 Polyethylene Glycol (Miralax) 17 gm DAILYPRN PRN ORAL Constipation 10/22/16 18:00 11/21/16 17:59 Sodium Bicarbonate (Sodium Bicarbonate) 50 ml ONCE PRN IV PICC LINE PLACEMENT 10/22/16 18:00 10/23/16 20:00 Temazepam (Restoril) 15 mg HSPRN PRN ORAL Insomnia 10/22/16 21:00 10/29/16 20:59 KITTY SOW Oct 23, 2016 10:12
[2016-10-23 10:24] LABS: TROPONIN I < 0.30 ng/mL (<=0.30)
[2016-10-23 10:29] LABS: ANION GAP 16 (5-15); CALCIUM 8.9 mg/dL (8.6-10.2); CARBON DIOXIDE 25 mEQ/L (20-30); CHLORIDE 99 mEQ/L (98-107); CREATININE 0.7 mg/dL (0.5-0.9); GLOMERULAR FILTRATION RATE > 60 mL/min (>60); HEMOLYSIS 5; POTASSIUM 3.9 mEQ/L (3.4-4.9); SODIUM 140 mEQ/L (135-145)
[2016-10-23 12:00] VITALS: BP 110/64
--- NOTE | 2016-10-23 12:16 | General Progress Note ---
Assessment/Plan Problem List: (1) Lupus erythematosus ICD Codes: L93.0 - Discoid lupus erythematosus SNOMED: 775567274 (2) Crohn disease ICD Codes: K50.90 - Crohn's disease, unspecified, without complications SNOMED: 34421272 (3) ACS (acute coronary syndrome) ICD Codes: I24.9 - Acute ischemic heart disease, unspecified SNOMED: 763053015 (4) Acute chest pain ICD Codes: R07.9 - Chest pain, unspecified SNOMED: 015358967 Status: stable, progressing, tolerating diet Assessment/Plan ot pt diet abx cbc bmp am dc plan Subjective Allergies: Coded Allergies: HEPARIN (Verified Allergy, Mild, RASH, 09/01/13) All Systems: reviewed and negative except above Subjective sleepy in bed Objective Last 24 Hour Vital Signs Date Time Temp Pulse Resp B/P Pulse Ox O2 Delivery O2 Flow Rate FiO2 10/23/16 08:00 98.7 94 18 107/54 99 Room Air 10/23/16 05:28 118/71 10/23/16 05:27 89 118/71 10/23/16 04:00 98.2 89 18 118/71 97 Room Air 10/22/16 23:39 106/67 10/22/16 23:29 106 107/67 10/22/16 22:00 105 106/67 10/22/16 20:00 97.5 105 18 100/74 96 Room Air 10/22/16 18:00 110/49 10/22/16 16:35 97.3 10/22/16 15:24 97.3 93 18 106/51 95 Room Air 10/22/16 13:55 96 96/54 10/22/16 12:52 97.7 96 18 96/54 96 Room Air Intake and Output 10/22/16 10/23/16 19:00 07:00 Intake Total 540 ml 240 ml Balance 540 ml 240 ml Intake Oral 540 ml Other 240 ml # Voids 2 Laboratory Tests 10/23/16 09:15: White Blood Count 10.8, Red Blood Count 4.54, Hemoglobin 13.5, Hematocrit 41.0, Mean Corpuscular Volume 90, Mean Corpuscular Hemoglobin 29.7, Mean Corpuscular Hemoglobin Concent 32.9, Red Cell Distribution Width 13.5, Platelet Count 278, Mean Platelet Volume 7.9, Neutrophils (%) (Auto) 79.3H, Lymphocytes (%) (Auto) 14.3L, Monocytes (%) (Auto) 4.8, Eosinophils (%) (Auto) 0.9, Basophils (%) (Auto ) 0.7, Sodium Level 140, Potassium Level 3.9, Chloride Level 99, Carbon Dioxide Level 25, Anion Gap 16H, Blood Urea Nitrogen 14, Creatinine 0.7, Estimat Glomerular Filtration Rate > 60, Glucose Level 91, Calcium Level 8.9, Troponin I < 0.30, HIV (1&2) Antibody Rapid Negative Height (Feet): 5 Height (Inches): 1.00 Weight (Pounds): 160 General Appearance: alert EENT: normal ENT inspection Neck: non-tender, normal alignment, supple Cardiovascular: normal peripheral pulses, normal rate, regular rhythm Respiratory/Chest: chest wall non-tender, lungs clear, normal breath sounds Abdomen: normal bowel sounds, non tender, soft Extremities: normal inspection Edema: no edema noted Arm (L), no edema noted Arm (R), no edema noted Leg (L), no edema noted Leg (R), no edema noted Pedal (L), no edema noted Pedal (R), no edema noted Generalized Neurologic: responsive, motor weakness Skin: normal pigmentation, warm/dry JULI CALVILLO Oct 23, 2016 12:16
--- NOTE | 2016-10-23 14:53 | Diagnostic Imaging Report ---
Indication: FALL, pain status post fall Technique: 2 views of the left knee Comparison: None Findings: No acute fractures. No dislocations. No suprapatellar effusion. The joint spaces are preserved Impression: Negative
--- NOTE | 2016-10-23 14:53 | Diagnostic Imaging Report ---
Indication: FALL, pain status post fall Technique: 2 views of the right knee Comparison: None Findings: Bony alignment is normal. No acute fractures. No dislocations. No suprapatellar effusion Impression: Negative
--- NOTE | 2016-10-23 14:54 | Diagnostic Imaging Report ---
Indication: FALL, pain Technique: 2 views of the tibia and fibula Comparison: none Findings: No acute fractures. No dislocations. Joint spaces are preserved Impression: Negative
--- NOTE | 2016-10-23 14:55 | Diagnostic Imaging Report ---
Indication: FALL, pain Technique: 2 views of the tibia and fibula Comparison: none Findings: No acute fractures. No dislocations. The joint spaces are preserved Impression: Negative
--- NOTE | 2016-10-23 14:56 | Diagnostic Imaging Report ---
Indication: FALL, pain Technique: 2 views of the left hip Comparison: None Findings: No acute fractures. No dislocations. Joint spaces are preserved Impression: Negative
[2016-10-23 16:00] VITALS: BP 100/53
--- NOTE | 2016-10-23 16:32 | Diagnostic Imaging Report ---
Indication: FALL Technique: 2 views of the right hip Comparison: None Findings: No acute fractures. No dislocations. Joint spaces are preserved Impression: Negative
[2016-10-23 20:00] VITALS: BP 109/69
--- NOTE | 2016-10-23 23:51 | Cardiology Progress Note ---
Assessment/Plan Assessment/Plan 1. Non-cardiac chest pain, likely musculoskeletal origin in view of Crohn's disease. 2. Sinus tachycardia, LVEF is WNL. Subjective Subjective No chest pain or SOB. Not on the telemetry unit. Objective Last 24 Hour Vital Signs Date Time Temp Pulse Resp B/P Pulse Ox O2 Delivery O2 Flow Rate FiO2 10/23/16 20:57 94 100/53 10/23/16 20:00 98.2 101 20 109/69 98 Room Air 10/23/16 18:00 100/53 10/23/16 16:00 98.1 94 20 100/53 100 Room Air 10/23/16 12:58 91 114/74 10/23/16 12:47 114/74 10/23/16 12:00 98.6 89 20 110/64 99 Room Air 10/23/16 08:00 98.7 94 18 107/54 99 Room Air 10/23/16 05:28 118/71 10/23/16 05:27 89 118/71 10/23/16 04:00 98.2 89 18 118/71 97 Room Air Intake and Output 10/22/16 10/23/16 19:00 07:00 Intake Total 540 ml 240 ml Balance 540 ml 240 ml Intake Oral 540 ml Other 240 ml # Voids 2 2D Echo: LVEF WNL, RVSP 14 mmHg, Grade I LVDD Laboratory Tests Test 10/23/16 09:15 White Blood Count 10.8 K/UL (4.8-10.8) Red Blood Count 4.54 M/UL (4.20-5.40) Hemoglobin 13.5 G/DL (12.0-16.0) Hematocrit 41.0 % (37.0-47.0) Mean Corpuscular Volume 90 FL (80-99) Mean Corpuscular Hemoglobin 29.7 PG (27.0-31.0) Mean Corpuscular Hemoglobin Concent 32.9 G/DL (32.0-36.0) Red Cell Distribution Width 13.5 % (11.6-14.8) Platelet Count 278 K/UL (150-450) Mean Platelet Volume 7.9 FL (6.5-10.1) Neutrophils (%) (Auto) 79.3 % (45.0-75.0) H Lymphocytes (%) (Auto) 14.3 % (20.0-45.0) L Monocytes (%) (Auto) 4.8 % (1.0-10.0) Eosinophils (%) (Auto) 0.9 % (0.0-3.0) Basophils (%) (Auto) 0.7 % (0.0-2.0) Sodium Level 140 mEQ/L (135-145) Potassium Level 3.9 mEQ/L (3.4-4.9) Chloride Level 99 mEQ/L (98-107) Carbon Dioxide Level 25 mEQ/L (20-30) Anion Gap 16 (5-15) H Blood Urea Nitrogen 14 mg/dL (7-23) Creatinine 0.7 mg/dL (0.5-0.9) Estimat Glomerular Filtration Rate > 60 mL/min (>60) Glucose Level 91 mg/dL (74-106) Calcium Level 8.9 mg/dL (8.6-10.2) Troponin I < 0.30 ng/mL (<=0.30) HIV (1&2) Antibody Rapid Negative (NEGATIVE) Objective Head: Normocephalic, atraumatic, EOMI, PERRLA Neck: no JVD, no carotid bruit, carotid upstroke 2+ Respiratory: lungs clear, normal breath sounds Cardiovascular: normal S1 S2, regular rate, rhythm, no gallops or rubs or murmur Gastrointestinal: Tenderness diffusely however abdomen soft, mildly hyperactive bowel sounds Musculoskeletal: no edema, clubbing or cyanosis LOUISE BARRIOS Oct 23, 2016 23:51
[2016-10-24] VITALS: BP 107/70
[2016-10-24 04:00] VITALS: BP 102/65
[2016-10-24 07:47] VITALS: BP 110/66
[2016-10-24] MEDS: Aspirin Baby 81mg ORAL SCH (07:57)
[2016-10-24] MEDS: DiphenhydrAMINE 50mg/ml Inj IVP PRN (07:57)
[2016-10-24] MEDS: Morphine Sulfate 2mg/ml Inj IVP PRN (07:58)
[2016-10-24 09:13] LABS: BASOPHILS % (AUTO) 0.7 % (0.0-2.0); EOSINOPHILS % (AUTO) 0.9 % (0.0-3.0); LYMPHOCYTES % (AUTO) 14.7 % (20.0-45.0); MEAN CORPUSCULAR HEMOGLOBIN 29.7 PG (27.0-31.0); MEAN CORPUSCULAR HGB CONC 32.6 G/DL (32.0-36.0); MEAN CORPUSCULAR VOLUME 91 FL (80-99); MEAN PLATELET VOLUME 7.4 FL (6.5-10.1); NEUTROPHILS % (AUTO) 79.7 % (45.0-75.0); PLATELET COUNT 287 K/UL (150-450); RED BLOOD COUNT 4.85 M/UL (4.20-5.40); RED CELL DISTRIBUTION WIDTH 13.4 % (11.6-14.8); WHITE BLOOD COUNT 10.7 K/UL (4.8-10.8)
[2016-10-24 09:35] LABS: ANION GAP 13 (5-15); CALCIUM 8.9 mg/dL (8.6-10.2); CARBON DIOXIDE 26 mEQ/L (20-30); CHLORIDE 101 mEQ/L (98-107); CREATININE 0.7 mg/dL (0.5-0.9); GLOMERULAR FILTRATION RATE > 60 mL/min (>60); HEMOLYSIS 6; POTASSIUM 3.9 mEQ/L (3.4-4.9); SODIUM 140 mEQ/L (135-145)
[2016-10-24 12:00] VITALS: BP 107/57
--- NOTE | 2016-10-24 13:22 | General Progress Note ---
Assessment/Plan Problem List: (1) Lupus erythematosus ICD Codes: L93.0 - Discoid lupus erythematosus SNOMED: 354287065 (2) Crohn disease ICD Codes: K50.90 - Crohn's disease, unspecified, without complications SNOMED: 40565506 (3) ACS (acute coronary syndrome) ICD Codes: I24.9 - Acute ischemic heart disease, unspecified SNOMED: 040978257 (4) Acute chest pain ICD Codes: R07.9 - Chest pain, unspecified SNOMED: 526779886 Status: stable, progressing, tolerating diet Assessment/Plan ot pt diet abx dc plan Subjective Constitutional: Reports: weakness Allergies: Coded Allergies: HEPARIN (Verified Allergy, Mild, RASH, 09/01/13) All Systems: reviewed and negative except above Subjective sleepy in bed Objective Last 24 Hour Vital Signs Date Time Temp Pulse Resp B/P Pulse Ox O2 Delivery O2 Flow Rate FiO2 10/24/16 12:00 98.6 91 18 107/57 99 Room Air 10/24/16 07:48 88 18 Room Air 10/24/16 07:47 98.4 96 20 110/66 99 Room Air 10/24/16 06:00 102/65 10/24/16 05:32 87 102/65 10/24/16 04:00 97.9 87 18 102/65 96 Room Air 10/24/16 00:34 100/53 10/24/16 00:00 97.7 91 18 107/70 95 Room Air 10/23/16 20:57 94 100/53 10/23/16 20:00 98.2 101 20 109/69 98 Room Air 10/23/16 18:00 100/53 10/23/16 16:00 98.1 94 20 100/53 100 Room Air Intake and Output 10/23/16 10/24/16 19:00 07:00 Intake Total 500 ml Balance 500 ml Intake Oral 500 ml # Voids 4 2 Laboratory Tests 10/24/16 08:55: White Blood Count 10.7, Red Blood Count 4.85, Hemoglobin 14.4, Hematocrit 44.1, Mean Corpuscular Volume 91, Mean Corpuscular Hemoglobin 29.7, Mean Corpuscular Hemoglobin Concent 32.6, Red Cell Distribution Width 13.4, Platelet Count 287, Mean Platelet Volume 7.4, Neutrophils (%) (Auto) 79.7H, Lymphocytes (%) (Auto) 14.7L, Monocytes (%) (Auto) 4.0, Eosinophils (%) (Auto) 0.9, Basophils (%) (Auto ) 0.7, Sodium Level 140, Potassium Level 3.9, Chloride Level 101, Carbon Dioxide Level 26, Anion Gap 13, Blood Urea Nitrogen 11, Creatinine 0.7, Estimat Glomerular Filtration Rate > 60, Glucose Level 125H, Calcium Level 8.9 Height (Feet): 5 Height (Inches): 1.00 Weight (Pounds): 160 General Appearance: lethargic EENT: normal ENT inspection Neck: normal alignment Cardiovascular: normal peripheral pulses, normal rate, regular rhythm Respiratory/Chest: chest wall non-tender, lungs clear, normal breath sounds Abdomen: normal bowel sounds, non tender, soft Edema: no edema noted Arm (L), no edema noted Arm (R), no edema noted Leg (L), no edema noted Leg (R), no edema noted Pedal (L), no edema noted Pedal (R), no edema noted Generalized Neurologic: responsive, motor weakness Skin: normal pigmentation, warm/dry JULI CALVILLO Oct 24, 2016 13:22
[2016-10-24] MEDS ORDERED: TYLENOL EXTRA500 MG ORAL (14:09)
[2016-10-24] MEDS ORDERED: ASPIRIN-LOW81 MG ORAL (14:10)
[2016-10-24] MEDS ORDERED: ISOSORBIDE DINI10 MG ORAL (14:12)
[2016-10-24] MEDS ORDERED: CARDIZEM30 M1 PO (14:16)
--- NOTE | 2016-10-24 23:05 | Pulmonology Progress Note ---
Assessment/Plan Problems: (1) ACS (acute coronary syndrome) (2) Crohn disease (3) Ulcerative colitis (4) Lupus erythematosus Assessment/Plan bren positive symptomatic treatment Rheuma consult pending cardio appreciated f/u WBC f/u BREN, CH50 Subjective ROS Limited/Unobtainable: No Allergies: Coded Allergies: HEPARIN (Verified Allergy, Mild, RASH, 09/01/13) Objective Last 24 Hour Vital Signs Date Time Temp Pulse Resp B/P Pulse Ox O2 Delivery O2 Flow Rate FiO2 10/24/16 12:00 98.6 91 18 107/57 99 Room Air 10/24/16 07:48 88 18 Room Air 10/24/16 07:47 98.4 96 20 110/66 99 Room Air 10/24/16 06:00 102/65 10/24/16 05:32 87 102/65 10/24/16 04:00 97.9 87 18 102/65 96 Room Air 10/24/16 00:34 100/53 10/24/16 00:00 97.7 91 18 107/70 95 Room Air Intake and Output 10/23/16 10/24/16 19:00 07:00 Intake Total 500 ml Balance 500 ml Intake Oral 500 ml # Voids 4 2 Objective General Appearance: WD/WN HEENT: normocephalic Respiratory/Chest: chest wall non-tender, lungs clear, normal breath sounds Cardiovascular: normal peripheral pulses, normal rate, regular rhythm Abdomen: normal bowel sounds, soft, non tender, no organomegaly, non distended Extremities: no cyanosis, no clubbing Skin: no rash, no lesions 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 Laboratory Tests 10/24/16 08:55: White Blood Count 10.7, Red Blood Count 4.85, Hemoglobin 14.4, Hematocrit 44.1, Mean Corpuscular Volume 91, Mean Corpuscular Hemoglobin 29.7, Mean Corpuscular Hemoglobin Concent 32.6, Red Cell Distribution Width 13.4, Platelet Count 287, Mean Platelet Volume 7.4, Neutrophils (%) (Auto) 79.7H, Lymphocytes (%) (Auto) 14.7L, Monocytes (%) (Auto) 4.0, Eosinophils (%) (Auto) 0.9, Basophils (%) (Auto ) 0.7, Sodium Level 140, Potassium Level 3.9, Chloride Level 101, Carbon Dioxide Level 26, Anion Gap 13, Blood Urea Nitrogen 11, Creatinine 0.7, Estimat Glomerular Filtration Rate > 60, Glucose Level 125H, Calcium Level 8.9 BERNABE SOUZA Oct 24, 2016 23:05
--- NOTE | 2016-10-25 20:12 | Discharge Summary ---
Discharge Summary Hospital Course Date of Admission Oct 20, 2016 at 10:26 Date of Discharge Oct 24, 2016 at 15:15 Admitting Diagnosis LUPUS FLAIRE UO.ACUTE CORONARY SYNDROME HPI Deirdre Varela is a 31 year old female who was admitted on Oct 20, 2016 at 10:26 for Lupus Flaire,Acute Coronary Syndrome Hospital Course [id number] Discharge Discharge Disposition Patient was discharged to Home () Discharge Diagnoses: Nilsa Rodriguez NP Oct 25, 2016 20:12
--- NOTE | 2016-10-26 05:38 | Discharge Summary 2 SIG ---
DATE OF ADMISSION: 10/20/2016 DATE OF DISCHARGE: 10/24/2016 CONSULTANTS: 1. Tristen Roa M.D. 2. Duane Marcum M.D. 3. Sebastien Jacobsen M.D. BRIEF HOSPITAL COURSE: The patient is a 31-year-old female, who has history of lupus and Crohn disease, came in complaining of increased chest pain. The patient was evaluated at ED and due to risk factors, she was admitted for further care. Dr. Roa was consulted. Troponin has been negative. Echocardiogram done showed normal left ventricular size function, and wall motion gross with left ventricular ejection fraction estimated to be grossly normal and no evidence of ventricular hypertrophy. She had leukocytosis, however, urine and chest x-ray were okay. Blood culture did not isolate any growth. Leukocytosis was reactive. DAMIEN was positive. She was given symptomatic treatment. Chest pain was likely musculoskeletal in origin in view of Crohn disease. X-rays of the knee, hip, and leg were negative. She was eventually discharged home. FINAL DIAGNOSES: 1. Lupus erythematosus. 2. Crohn disease. 3. Acute coronary syndrome. 4. Acute chest pain possibly musculoskeletal in origin. Juan Carlos Pino D.O. I have been assigned to dictate discharge summary on this account and I was not involved in the patient's management. Nilsa Rodriguez N.P. DR: Verena JOB#: [id number] CC: CATHERINE
== END 2016-10-24 15:15 | disposition home or self-care (01) | DRG 198 ==
LOC: EMR 09:51 → 2E 10:26 → EDBEDREQ 10:48 → 2E 10-21 05:54 → 3E 10-22 15:45
DX: I24.9 Acute ischemic heart disease, unspecified (principal); K50.90 Crohn's disease, unspecified, without complications; R07.89 Other chest pain; L93.0 Discoid lupus erythematosus; K51.90 Ulcerative colitis, unspecified, without complications; F19.10 Other psychoactive substance abuse, uncomplicated; Z88.8 Allergy status to other drugs, medicaments and biological substances; M06.9 Rheumatoid arthritis, unspecified; R00.0 Tachycardia, unspecified
CPT/HCPCS: 36415; 71010; 73502; 80048; 80053; 80061; 80300; 81003; 81025; 82550; 82553; 82962; 83690; 83880; 84443; 84484; 85025; 85610; 85651; 85730; 86039; 86140; 86162; 86431; 86703; 87040; 93005; 93306; 94664; 97803; J2405